=== PATIENT | female | born 1995 | race African-American/Black ===

== ENCOUNTER 2019-12-03 19:23 | Emergency (ER) | payer OTHER ==
[~2019-12-03] VITALS: Ht 157.5 cm; Wt 54.0 kg
[2019-12-03] MEDS ORDERED: PRENATAL + DHA1 EAC1 (20:09)
[2019-12-03] MEDS ORDERED: PEPCID AC10 MG (20:09)
[2019-12-04] MEDS ORDERED: METOCLOPRAMIDE10 M1 PO (00:12)
[2019-12-04] MEDS ORDERED: PEPCID COMPLET1 EACH PO (00:12)
[2019-12-04] MEDS ORDERED: ONDANSETRON ODT4 MG SL (00:12)
== END 2019-12-04 00:25 | disposition home or self-care (01) ==
LOC: ER 19:23
DX: O21.0 Mild hyperemesis gravidarum (principal); E86.0 Dehydration; Z34.01 Encounter for supervision of normal first pregnancy, first trimester

== ENCOUNTER 2020-05-05 13:45 | Inpatient (IN) | payer OTHER ==
[~2020-05-05] VITALS: Ht 157.5 cm; Wt 70.3 kg
[~2020-05-05 13:45] MED LIST: METOCLOPRAMIDE10 M1 PO; ONDANSETRON ODT4 MG SL; PEPCID AC10 MG; PEPCID COMPLET1 EACH PO; PRENATAL + DHA1 EAC1
[2020-06-04] MEDS ORDERED: CODE1TAB37 PO (08:25)
[2020-06-04] MEDS ORDERED: IBUPROFEN600 MG PO (08:25)
== END 2020-06-04 11:00 | disposition home or self-care (01) | DRG 788 ==
LOC: LDR 06-01 00:40 → O/R 06-01 17:25 → OB/GYN 06-01 18:00 → LDR 06-05 13:45 → OB/GYN 06-05 13:45
PROVIDERS: Obstetrics & Gynecology; ADMIT Obstetrics & Gynecology; ATTEND Obstetrics & Gynecology
PROC: 4A1HXFZ Monitoring of Products of Conception, Cardiac Rhythm, External Approach (ICD-10-PCS; 2020-06-01)
PROC: 3E033VJ Introduction of Other Hormone into Peripheral Vein, Percutaneous Approach (ICD-10-PCS; 2020-06-01)
PROC: 10D00Z1 Extraction of Products of Conception, Low, Open Approach (ICD-10-PCS; principal; 2020-06-01 15:15)
DX: O61.0 Failed medical induction of labor (principal); O69.81X0 Labor and delivery complicated by cord around neck, without compression, not applicable or unspecified; Z3A.39 39 weeks gestation of pregnancy; Z37.0 Single live birth; Z20.828 Contact with and (suspected) exposure to other viral communicable diseases

== ENCOUNTER → 2021-10-23 | Emergency (ER) | payer OTHER ==
[~2021-10-23] VITALS: Ht 157.5 cm; Wt 54.4 kg
[~2021-10-23] MED LIST changes: +CODE1TAB37 PO; +IBUPROFEN600 MG PO
== END | disposition left against medical advice (07) ==
LOC: ER 00:54
DX: Z53.21 Procedure and treatment not carried out due to patient leaving prior to being seen by health care provider (principal)

== ENCOUNTER 2023-05-15 18:42 | Emergency (ER) | payer OTHER ==
[~2023-05-15] VITALS: Ht 157.5 cm; Wt 54.4 kg
== END 2023-05-15 19:41 | disposition home or self-care (01) ==
LOC: ER 18:42
DX: J03.90 Acute tonsillitis, unspecified (principal)